=== PATIENT | female | born 1990 | race American Indian/Alaskan Native ===

== ENCOUNTER 2017-09-06 15:58 | Inpatient (IN) | payer BC, OTHER ==
[2017-09-06 18:18] VITALS: BMI 28.5
[2017-09-06] MEDS ORDERED: Penicillin G 5 Million Unit Vial IVPB ONE ×2 (18:18→20:16)
[2017-09-06] MEDS ORDERED: Lactated Ringer's 1,000 ML IV ONE (18:18)
[2017-09-06] MEDS ORDERED: Oxytocin 30 UNIT 30 UNITS/500 ML BAG IV ONE ×2 (18:18→20:03)
[2017-09-06] MEDS ORDERED: Lactated Ringer's 1,000 ML IV SCH (18:30)
[2017-09-06 19:01] LABS: BASO # 0.1 K/uL (0.0-0.2); BASO % 0.9 % (0.0-2.0); EOS # 0.1 K/uL (0.0-0.7); EOS % 0.8 % (0.0-4.0); HEMOGLOBIN 12.3 g/dL (11.0-16.0); LYMPH # 1.8 K/uL (1.0-4.3); LYMPH % 26.2 % (20.0-40.0); MEAN CELL VOLUME 95.1 fL (81.0-99.0); MEAN CORPUSCULAR HEMOGLOBIN 31.6 pg (27.0-31.0); MEAN CORPUSCULAR HGB CONC 33.2 g/dL (33.0-37.0); MEAN PLATELET VOLUME 10.5 fL (7.2-11.7); MONO # 0.5 K/uL (0.0-0.8); MONO % 7.5 % (0.0-10.0); NEUT # 4.4 K/uL (1.8-7.0); NEUT % 64.6 % (50.0-75.0); NRBC % 0.1 % (0.0-2.0); RBC 3.89 Mil/uL (3.80-5.20); RED CELL DISTRIBUTION WIDTH 13.4 % (11.5-14.5); WHITE BLOOD COUNT 6.8 K/uL (4.8-10.8)
[2017-09-06 19:03] LABS: SQUAMOUS EPITHIAL 2 /hpf (0-5); URINE BILIRUBIN NEGATIVE (NEGATIVE); URINE BLOOD NEGATIVE (NEGATIVE); URINE CLARITY Hazy (Clear); URINE COLOR Yellow (YELLOW); URINE GLUCOSE (UA) NORMAL (Normal); URINE LEUKOCYTE ESTERASE TRACE Leu/uL (Negative); URINE PROTEIN NEGATIVE (NEGATIVE); URINE UROBILINOGEN NORMAL mg/dL (0.2-1.0)
[2017-09-06] MEDS ORDERED: Bupivacaine HCl/FentaNYL Cit 100 ML EPI ONE (21:22)
--- NOTE | 2017-09-06 21:56 | OBHP ---
Datetime: 09/06/2017 16:49 IP Adm Impression: Term, intrauterine ; No Active Labor; Intact Membranes IP Admit Plan: Admit to unit IP Admit Plan Other: Cdervical ripening and augmentation Admit Comment, IP Provider: Evaluation commenced at 1615 hours This is a private patient of Dr. Fina Bautista 27 y.o. P1, LMP 12/09/16, revised HARDIK 09/11/17, EGA 39w 2d by sono at 6 weeks, referred by PMD for e valuation due to decreased movement. Reports last "normal" movement approx 2000 hours 09/05/17. Not much movement all night. Approx 0900 hours, ate breakfast: (+) FM then, none since. Did many of t he recommended maneuvers to stimulate fetus. Called PMD in the afternoon, told to come in. [place] some movement in car on her way to hospital approx 1530 hours; none since. Denies LOF. (+) vaginal spotting x 2 days (Friday after Office visit) and . No active red blood per vagina. (+) B- H Ctx. Last had sexual intercourse lasat night. care: Dr. Fina Bautista; noted for anemia an d GBS (+). Was told to have fibroids on 2 ultrasounds earlier in ; not seen on most recent u ltrasound. 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 Denies h/o STI, fibroids, abnormal Pap PMH: heart murmur: first diagnosed age 9;not detected approx 2 years later. PSH: 2011, bilateral bunionectomy NKDA Meds: PNV. Stopped iron as "the level improved" Soc Hx: deneis tobacco, illicit drug or EtOH use. x 2 years. 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 Father alive 65 y.o.; both with HTN. No known fam h/o cancer P.E.: as above. WD in NAD. Awake, alert, oriented to time, person and place. Pleasant and cooperat adolfo. and mother in law present. Assessment: 27 y.o. P0, 39w 2d, decreased movement. Category 1 tracing. Will admit for edi rodrigues. Dr. Bautista spoke with patient, explaining the following: placementof cervical ripening balloon a nd initiation of pitocin. Pain relief options also discussed. Patient has agreed to proceed. Patient is clinically stable. GBS (+) Plan: 1) Admit 2) NPO 3) Patient may shower 4) IVFs 5) Continuous EFM 6) Admission labs 7) Placement of cervical ripening balloon 8) Penicillin 9) pitocin 10) Epidural, upon request 11) Anticipate vaginal delivery - as per, and discussed with, Dr. Bautista Addendum: 2000 hours - cervical ripening balloon inserted without incident Assessment: 27 y. P0, 39w 2d, decreased movement for delivery; cervical ripening in progress . Category 1 tracing. Clinically stable. Plan: 1) start pitocin 2) as above Pelvic Type - PN: Adequate Extremities - PN: Normal Abdomen - PN: Normal Back - PN: Normal Breast - PN: Normal Lungs - PN: Normal Heart - PN: Normal Thyroid - PN: Not Done Neurologic - PN: Normal HEENT - PN: Normal General - PN: Normal Weight - Estimated: 3860 Presentation-Admit: Vertex FHR - Baseline A Provider: 145 Contraction Comments Provider: irregular Comments, ACOG Physical Exam: Abdomen: Gravid. Soft. Non tender. Fundal height = 38 cm All other systems reviewed and are negative Gestation - Est Wks by US: 39w 2d EGA AdmitDate IP: 39.2 Vital Signs Provider: Reviewed IP Indication for Induction: Other IP Indication for Induction Oth: Decreased movement IP Chief Complaint: Decreased movement NICHD Variability Prov Fetus A: Moderate 6-25bpm NICHD Accel Fetus A IP Provider: 10X10 FHR Category Provider Fetus A: Category I NICHD Decel Fetus A IP Provider: None Dilatation, Provider: 2 Effacement, Provider: 30 Station, Provider: -3 Genitourinary Exam: Normal DTRs - PN: Not Done
--- NOTE | 2017-09-07 01:26 | OBPN ---
Datetime: 09/07/2017 01:15 IP Progress Impression: Normal progression of labor IP Procedures: Artificial ROM; Sterile Vag Exam IP Progress Plan: Continue present management; Anticipate Vaginal Delivery Membranes, Provider: Ruptured Amniotic Fluid Color, Provider: Clear Contraction Comments Provider: 2-3 FHR - Baseline A Provider: 150 Gestation - Est Wks by US: 39w 3d Presentation-Admit: Vertex IP Progress Note Comment: Notified by R.N. at 0100 hours, FHR noted for late decelerations FHR tracing reviewed: 9=0 late decelertions x 20 minutes Patietn receivedin bed, LDR#2 in left lateral position. Pitocin off; IV bolus in progress, oxygen by face mask. Patient without any complaint of pain - S/P epidural Cervical exam: cervical ripening balloos removed. dilatation as above. At 0110 hours cervix: 6-7/7 0/-3. Decisoin made to perform AROM. Same performed - copious amount of clear fluid; station - 2. Assessment: 27 y.o. P0, 39w 3d, as above. In between first encounter and AROM, FHR improved with n o decelerations. After AROM, early decelerations noted. patient is clinically stable. Plan: 1) Observe 2) Possible resume pitocin 3) Anticipate vaginal delivery - as per and discussed with Dr. Bautista Vital Signs Provider: Reviewed; Within Normal Limits NICHD Accel Fetus A IP Provider: 15X15 NICHD Variability Prov Fetus A: Moderate 6-25bpm Dilatation, Provider: 7 Effacement, Provider: 70 Station, Provider: -3 NICHD Decel Fetus A IP Provider: Early Datetime: 09/06/2017 16:49 Weight - Estimated: 3860 FHR Category Provider Fetus A: Category I
--- NOTE | 2017-09-07 02:53 | OBPN ---
Datetime: 09/07/2017 01:56 IP Progress Impression: Normal progression of labor IP Informed Consent Obtain: Vaginal Delivery IP Progress Plan: Continue present management Membranes, Provider: Ruptured Amniotic Fluid Color, Provider: Clear FHR - Baseline A Provider: 145 Gestation - Est Wks by US: 39.3 Presentation-Admit: Vertex IP Progress Note Comment: pt seen and examined s/p epidural pt adivsed for decreased movments and cat II with variables, piticon adn velásquez balloon initi ate velásquez balloon removed, pitcon dxc due to decelration oxygen, eflt latera, ivh arom, clear VSS EFM: 145/mod mike early TOCO: q 1-2m in A/P @ 39.3 in labor, gbs postiive cont current mangment Vital Signs Provider: Reviewed; Within Normal Limits NICHD Variability Prov Fetus A: Moderate 6-25bpm Dilatation, Provider: 5 Effacement, Provider: 60 Station, Provider: -2 NICHD Decel Fetus A IP Provider: Variable
[2017-09-07] MEDS ORDERED: Bupivacaine HCl/FentaNYL Cit 100 ML EPI ONE (04:24)
--- NOTE | 2017-09-07 07:28 | OBPN ---
Datetime: 09/07/2017 07:23 IP Procedures: Artificial ROM IP Progress Plan: Continue present management Membranes, Provider: Ruptured Amniotic Fluid Color, Provider: Clear Contraction Comments Provider: q 1-2 min FHR - Baseline A Provider: 150 Gestation - Est Wks by US: 39.3 Presentation-Admit: Vertex IP Progress Note Comment: pt seen and examiend for progiresosn of laobr. pt preorts nausea, no vomit ing, cp, sob VSS VE: /-2 vtx arom, clear EMF: Cat I TOCO: q 2 min A/P @ 39.3 wks GA in labor -pitocin as per protoicn -cont current managment Vital Signs Provider: Reviewed; Within Normal Limits FHR Category Provider Fetus A: Category I NICHD Variability Prov Fetus A: Moderate 6-25bpm Dilatation, Provider: 6 Effacement, Provider: 70 Station, Provider: -2 NICHD Decel Fetus A IP Provider: Early
[2017-09-07] MEDS ORDERED: Oxytocin 30 UNIT 30 UNITS/500 ML BAG IV SCH (07:30)
[2017-09-07] MEDS ORDERED: Sodium Citrate/Citric Acid 15 ml Sol PO ONE (08:30)
[2017-09-07] MEDS ORDERED: cefOXitin IV 2 gm in Dextrose 2 GM/50 ML BAG IVPB SCH (09:00)
[2017-09-07] MEDS ORDERED: cefOXitin IV 2 gm in Saline 2 GM in Sodium Chloride 0.9% 50 ML IV SCH (09:00)
[2017-09-07] MEDS ORDERED: Sodium Citrate/Citric Acid 15 ml Sol ONE (09:17)
[2017-09-07] MEDS ORDERED: cefOXitin IV 2 gm in Saline 2 GM/50 ML BAG IVPB ONE (09:31)
--- NOTE | 2017-09-07 09:32 | OBPN ---
Datetime: 09/07/2017 09:25 IP Progress Impression: Arrest of dilatation/descent IP Informed Consent Obtain: Section Delivery IP Progress Plan: Continue present management; Deliver- Section Membranes, Provider: Ruptured FHR - Baseline A Provider: 150 Gestation - Est Wks by US: 39.3 Presentation-Admit: Vertex IP Progress Note Comment: pt seen and examiend for progressin of labor. s/p epidural pitocion d c VSS EMF: Cat II TOCO: q 2 min A/P @ 39.3 wks GA with arrest of dilation r/b/ai pltc dw patietn preop [id number] npo, ivf admissin lbas cont toco and efm bicitrat pepcid or/anethsia aware Vital Signs Provider: Reviewed; Within Normal Limits FHR Category Provider Fetus A: Category II NICHD Variability Prov Fetus A: Moderate 6-25bpm Dilatation, Provider: 6 Effacement, Provider: 70 Station, Provider: -2 NICHD Decel Fetus A IP Provider: Late
[2017-09-07] MEDS ORDERED: Oxytocin 20 units in LR 2,000 ML IV ONE (09:48)
[2017-09-07] MEDS ORDERED: Morphine 1 mg/ml preservative-free Inj(Duramorph) ONE (09:53)
[2017-09-07] MEDS ORDERED: EPINEPHrine 1 mg/ml (1:1000) Inj ONE (09:57)
[2017-09-07] MEDS ORDERED: Phenylephrine 10 mg/ml Inj ONE (10:36)
[2017-09-07] MEDS ORDERED: Oxytocin 30 UNIT 30 UNITS/500 ML BAG IV ONE (10:55)
--- NOTE | 2017-09-07 10:57 | OBDS ---
DELIVERY PERSONNEL Delivery Doctor: Senait Bautista MD Scrub Nurse: Aracely Burnham OBT Accreditation Manager: Tiarra Ervin RN Anesthesiologist: erika Financial Compliance Examiner: Mesfin MATERNAL INFORMATION Delivery Anesthesia: Spinal Medications in Delivery: pitocin 20 mg Maternal Complications: None RN Comments: placenta sent to lab. Provider Comments: live male ifnant cepahic presntentatin agpars 9,9 weigh tof 7lb 10 ounces nroam appearing uteurs, tube and ovaries b/l peidatirin presnt for deliveyr LABOR SUMMARY EDC: 09/11/2017 00:00 Attempted: No Labor Anesthesia: Epidural LABOR INFORMATION Onset of Labor: 09/06/2017 22:00 Cervical Ripening Agents: Bryan Balloon (Annotations: Cervical ripening balloon removed by Dr. Reva greenfield) Other Ripening Agents: balloon Oxytocin: Induction Steroids Given: None Reason Steroids Not Administered: Not Applicable MEMBRANES Membranes Rupture Method: Artificial Rupture of Membranes: 09/07/2017 01:12 Length of Rupture (hrs): 9.07 Amniotic Fluid Color: Clear Amniotic Fluid Amount: Large Amniotic Fluid Odor: Normal STAGES OF LABOR Stage 3 hrs: 0 Stage 3 min: 1 Total Time in Labor hrs: 12 Total Time in Labor min: 17 CSECTION DELIVERY Primary Indication: Failed Induction Secondary Indication: Secondary Arrest of Dilatation CSection Urgency: Elective CSection Incidence: Primary Labor: Labor Elective: Elective BABY A INFORMATION Delivery Date/Time: 09/07/2017 10:16 Method of Delivery: Vaginal Born in Route : No : N/A Forceps: N/A SHOULDER DYSTOCIA BABY A Infant Delivery Date/Time: 09/07/2017 10:16 PRESENTATION/POSITION BABY A Presentation: Cephalic Cephalic Presentation: Vertex Vertex Position: Left Occipital Anterior Breech Presentation: N/A PLACENTA INFORMATION BABY A Placenta Delivery Time : 09/07/2017 10:17 Placenta Method of Delivery: Manual Removal Placenta Status: Delivered SCORES BABY A Heart Rate 1 min: >100 bpm Resp Effort 1 min: Good Cry Reflex Irritability 1 min: Cough or Sneeze or Pulls Away Muscle Tone 1 min: Active Motion Color 1 min: Body [place], Extremities Blue SCORE 1 MIN: 9 Heart Rate 5 min: >100 bpm Resp Effort 5 min: Good Cry Reflex Irritability 5 min: Cough or Sneeze or Pulls Away Muscle Tone 5 min: Active Motion Color 5 min: Body [place], Extremities Blue SCORE 5 MIN: 9 INFORMATION BABY A Gestational Age at Delivery: 39.3 Gestational Status: Term Infant Outcome : Liveborn Infant Condition : Stable Sex: Male IDENTIFICATION/MEDS BABY A ID Band Number: [id number] ID Band Location: Left Leg; Left Arm Sensor Applied: Yes Sensor Number: [id number] Sensor Location : Left Leg; Left Arm Vitamin K Given : Aquamephyton 1 mg IM Erythromycin Given: Given Both Eyes WEIGHT/LENGTH BABY A Birthweight (gms): 3460 Weight (lb): 7 Infant Weight (oz): 10 Infant Length Inches: 18.75 Infant Length cms: 47.6 CORD INFORMATION BABY A No. Cord Vessels: 3 Nuchal Cord : N/A Nuchal Cord Other: 0 ASSESSMENT BABY A Infant Complications: None
--- NOTE | 2017-09-07 10:58 | PCM.SURG1 ---
Surgeon's Initial Post Op Note - Surgeon's Notes Surgeon: Fina Bautista MD Carpenter Mate: Joni Nj MD Type of Anesthesia: Other Pre-Operative Diagnosis: Arrest of dilation Operative Findings: live male cephalic presentation apgrs 9,9 weigh of 7lbs 10 ounces alfredo lappearing uterus, tubes adn ovariesn bilaterally. peditaricn prseetn for delivery. Dr Joni Nj was surgical assistn and prestn for entire case and essential in gainign entry, retractin, epxosure, hlidng the bladder blade helpign to delivery ifnant and close all layers Post-Operative Diagnosis: same as above Operation Performed: Primary low transverse cesearen section Specimen/Specimens Removed: placenta Estimated Blood Loss: EBL {In ML}: 800 Blood Products Given: N/A Drains Used: No Drains Post-Op Condition: Good Date of Surgery/Procedure: 09/07/17 Time of Surgery/Procedure: 10:10
[2017-09-07] MEDS ORDERED: Oxycodone/Acetaminophen 5/325 mg Tab PO PRN (11:49)
[2017-09-07] MEDS: AMPicillin 2 GM in Sodium Chloride 0.9% 100 ML IVPB SCH ×2 (16:12→22:53)
[2017-09-07] MEDS: Simethicone 80 mg Chewtab PO SCH ×3 (16:44→22:52)
[2017-09-07] MEDS: Oxycodone/Acetaminophen 5/325 mg Tab PO PRN (23:53)
[2017-09-08] MEDS: AMPicillin 2 GM in Sodium Chloride 0.9% 100 ML IVPB SCH ×3 (04:30→16:42)
[2017-09-08 07:47] LABS: MEAN CELL VOLUME 95.7 fL (81.0-99.0); MEAN CORPUSCULAR HGB CONC 33.4 g/dL (33.0-37.0); MEAN PLATELET VOLUME 9.8 fL (7.2-11.7); RBC 2.86 Mil/uL (3.80-5.20)
[2017-09-08 07:50] LABS: HEMOGLOBIN 9.2 g/dL (11.0-16.0)
[2017-09-08] MEDS: Oxycodone/Acetaminophen 5/325 mg Tab PO PRN (08:33)
[2017-09-08] MEDS: Simethicone 80 mg Chewtab PO SCH ×4 (09:47→22:21)
[2017-09-08] MEDS ORDERED: Multiple Vitamins Tab PO SCH (10:00)
--- NOTE | 2017-09-08 10:36 | OBPPN ---
Datetime: 09/08/2017 10:21 PP Pain Prov: Within normal limits PP Nausea Prov: Denies PP Flatus Prov: Yes PP Breasts Prov: Normal PP Heart Prov: Normal PP Lungs Prov: Normal PP Abdomen/Uterus Prov: Normal PP Lochia Prov: Normal PP Vulva/Perineum Prov: Normal PP CVA Tenderness Prov: Normal PP Extremities Prov: Normal PP C/S Incision Prov: Normal PP Progress Prov: Normal PP Impression Prov: Normal progression; Endometritis PP Plan Prov: Continue present management; Antibiotic therapy PP Progress Note Prov: pt seen and examiend reprots pain andc rampign alleviated with precorcet. pt ambuating voiding passing minimal flatus, tolerted regular diet, denies any fever, chills, nasue, vo mitnv, cp, sob. pt isbreat feedign denies any feeling of sadnes or depression. pt denies any lighthea dnes,d izzyness. VSS PE GEN NAD AA ox 3 RESP: CTAB?l CVR: RRR, +S1/S2 ABD: soft, NT, nimally disteneded, no guarding, no reboudn tendnerr, no rigidty, Fundus firm at le alma of umbilicis INCSION C??DI healing well VE: minimal lochia, non foul smelling EXT: No calf tendnerss b/l, engaitve alvin's sign A/P s/p PLTCS POD #1 with endoemtritis triple anbitioc therapy x 24 hour am labs pain manamgnet bowel regimen encourage ambation and breast feeding Vital Signs Provider PP: Reviewed Vital Signs Provider Details PP: temp 101 09/07 Datetime: 09/07/2017 07:28 PP BM Prov: No
[2017-09-08] MEDS: Prenatal Multivit/Folic Acid/Iron Tab PO SCH (10:54)
[2017-09-08] MEDS ORDERED: Bisacodyl 5mg EC Tab PO ONE (10:56)
[2017-09-08 11:22] LABS: BASO % 0.3 % (0.0-2.0); EOS % 0.2 % (0.0-4.0); HEMOGLOBIN 9.1 g/dL (11.0-16.0); LYMPH # 1.3 K/uL (1.0-4.3); LYMPH % 12.3 % (20.0-40.0); MEAN CELL VOLUME 94.8 fL (81.0-99.0); MEAN CORPUSCULAR HEMOGLOBIN 32.3 pg (27.0-31.0); MEAN PLATELET VOLUME 9.6 fL (7.2-11.7); MONO # 0.9 K/uL (0.0-0.8); MONO % 8.6 % (0.0-10.0); NEUT # 8.1 K/uL (1.8-7.0); NEUT % 78.6 % (50.0-75.0); RBC 2.82 Mil/uL (3.80-5.20); RED CELL DISTRIBUTION WIDTH 13.2 % (11.5-14.5); WHITE BLOOD COUNT 10.3 K/uL (4.8-10.8)
--- NOTE | 2017-09-09 00:09 | OBPPN ---
Datetime: 09/09/2017 00:03 PP Pain Prov: Within normal limits PP Nausea Prov: Denies PP Flatus Prov: No PP BM Prov: No PP Breasts Prov: Normal PP Heart Prov: Normal PP Lungs Prov: Normal PP Abdomen/Uterus Prov: Normal PP Lochia Prov: Normal PP Vulva/Perineum Prov: Normal PP CVA Tenderness Prov: Normal PP Extremities Prov: Normal PP C/S Incision Prov: Normal PP Progress Prov: Normal PP Impression Prov: Normal progression; Endometritis PP Plan Prov: Continue present management PP Progress Note Prov: pt seen and examiend reprots pain andc rampign alleviated with precorcet. pt ambuating voiding not passing flatus, tolerted regular diet, denies any fever, chills, nasue, vomitn v, cp, sob. pt isbreat feedign denies any feeling of sadnes or depression. pt denies any lightheadnes ,d izzyness. VSS PE GEN NAD AA ox 3 RESP: CTAB?l CVR: RRR, +S1/S2 ABD: soft, NT, nimally disteneded, no guarding, no reboudn tendnerr, no rigidty, Fundus firm at le alma of umbilicis INCSION CDI healing well VE: minimal lochia, non foul smelling EXT: No calf tendnerss b/l, engaitve alvin's sign A/P s/p PLTCS POD #2 with endoemtritis s/p triple anbitiocs am labs cbc, cmp, mg pain manamgnet bowel regimen encourage ambation and breast feeding possibel abdomina xray Vital Signs Provider PP: Reviewed; Within Normal Limits
--- NOTE | 2017-09-09 01:28 | OP ---
PROCEDURE DATE: 09/07/2017 SURGEON: Fina Bautista MD LITIGATION SERVICES MANAGER: Joni Head MD TYPE OF ANESTHESIA: Epidural. PREOPERATIVE DIAGNOSIS: Arrest of dilation. POSTOPERATIVE DIAGNOSIS: Arrest of dilation. OPERATIVE FINDINGS: Live male infant, cephalic presentation, Apgars 9 and 9, weight of 7 pounds 9 ounces. Normal-appearing uterus, tubes and ovaries bilaterally. Manager Research was present for the delivery. Dr. Joni Head was operating room surgical technician who was present for the entire case and essential in gaining entry, retraction, exposure, holding the bladder blade, helping to deliver the infant and closing all layers. OPERATION PERFORMED: Primary low transverse section. SPECIMEN REMOVED: Placenta. ESTIMATED BLOOD LOSS: 800 mL. BLOOD PRODUCTS: None. COMPLICATIONS: None. DESCRIPTION OF PROCEDURE: The patient is a 27-year-old, G1, P0, with arrest of dilation. Risks, benefits, alternatives, and indications of section were discussed with the patient. Consent was obtained. The patient was transferred to the operating room where she was given preoperative prophylactic antibiotics. The patient was given epidural anesthesia. Once it was found to be adequate, she was placed on the operating table in dorsal supine position. The patient was then prepped and draped in the usual sterile fashion. A time-out confirmed correct patient and correct procedure. time-out, a Pfannenstiel skin incision was made with a scalpel, carried down to the underlying fascia with a Bovie. The fascia was incised in the midline. The incision was extended laterally with the Bovie. The inferior aspect of the fascial incision was grasped with Allis and Gia clamps, and the underlying rectus muscles were dissected off bluntly. Attention was then turned to the superior aspect of the incision which in a similar fashion was grasped, elevated with Gia clamps, and the underlying rectus muscles were dissected off bluntly. The rectus muscles were then bluntly in the midline. The peritoneum was identified, entered into clear space. The incision was extended laterally and superiorly until there was good visualization of the bladder. The lower end of the [place] was then inserted. The vesicouterine peritoneum was incised in a transverse fashion. A bladder flap was created digitally. The lower end of the [place] was then re-inserted. The lower uterine segment was incised in a transverse fashion. The uterine incision was extended laterally bluntly. Surgeon's hand entered the uterine cavity. The infant's head was delivered atraumatically followed by delivery of the shoulders, followed by delivery of the body. Both oral and nasal passages of the baby were bulb suctioned. The umbilical cord was clamped and cut. Baby was handed off to the awaiting calendar control clerk blood bank. Cord blood and cord gases were collected and sent x2. The placenta was then delivered manually. The uterus was exteriorized of all clots and debris. The uterine incision was repaired with 0 Vicryl in a running continuous locked fashion. A second layer of same suture was used to close the uterus in a running imbricating manner. There was good hemostasis at the uterine incision site. There were normal tubes and ovaries. The uterus was then returned into the abdomen. Paracolic gutters were cleared of all clots and debris. The peritoneum was reapproximated and closed with 2-0 chromic in a running continuous fashion. The rectus was reapproximated and closed with 2-0 chromic in an interrupted manner. The fascia was reapproximated and closed with 0 Vicryl in a running continuous fashion. The subcutaneous layers were closed with 2-0 plain in an interrupted manner. The skin was reapproximated and closed with 4-0 Monocryl. At the end of the procedure, all needles, sponge, and instrument counts were noted as correct x2. The patient tolerated the procedure well and was transferred to the recovery room in stable condition. Fina Bautista MD
[2017-09-09 07:53] LABS: ALBUMIN 2.8 g/dL (3.5-5.0); ALT/SGPT 23 U/L (9-52); AST/SGOT 33 U/L (14-36); BASO % 0.6 % (0.0-2.0); BLOOD UREA NITROGEN 6 mg/dL (7-17); CALCIUM 8.5 mg/dl (8.6-10.4); EOS # 0.1 K/uL (0.0-0.7); EOS % 0.8 % (0.0-4.0); GFR AFRICAN-AMERICAN > 60; GFR NON-AFRICAN AMERICAN > 60; HEMOGLOBIN 8.7 g/dL (11.0-16.0); LYMPH # 2.4 K/uL (1.0-4.3); LYMPH % 28.9 % (20.0-40.0); MEAN CELL VOLUME 95.7 fL (81.0-99.0); MEAN CORPUSCULAR HEMOGLOBIN 31.9 pg (27.0-31.0); MEAN CORPUSCULAR HGB CONC 33.4 g/dL (33.0-37.0); MEAN PLATELET VOLUME 9.4 fL (7.2-11.7); MONO # 0.8 K/uL (0.0-0.8); MONO % 9.5 % (0.0-10.0); NEUT # 4.9 K/uL (1.8-7.0); NEUT % 60.2 % (50.0-75.0); NRBC % 0.1 % (0.0-2.0); RBC 2.72 Mil/uL (3.80-5.20); RED CELL DISTRIBUTION WIDTH 13.1 % (11.5-14.5); WHITE BLOOD COUNT 8.2 K/uL (4.8-10.8)
[2017-09-09] MEDS: Prenatal Multivit/Folic Acid/Iron Tab PO SCH (09:51)
[2017-09-09] MEDS: Simethicone 80 mg Chewtab PO SCH ×4 (09:51→22:05)
[2017-09-09] MEDS ORDERED: Bisacodyl 5mg EC Tab PO ONE (10:12)
[2017-09-09] MEDS: Magnesium Hydroxide Susp 30 ml UD PO SCH ×3 (10:37→22:06)
[2017-09-10 00:06] VITALS: RESP 20
[2017-09-10] MEDS: Magnesium Hydroxide Susp 30 ml UD PO SCH ×3 (04:22→09:22)
[2017-09-10 08:23] LABS: BASO # 0.1 K/uL (0.0-0.2); BASO % 0.7 % (0.0-2.0); EOS # 0.1 K/uL (0.0-0.7); EOS % 2.1 % (0.0-4.0); HEMOGLOBIN 8.9 g/dL (11.0-16.0); LYMPH # 2.4 K/uL (1.0-4.3); LYMPH % 33.5 % (20.0-40.0); MEAN CELL VOLUME 95.6 fL (81.0-99.0); MEAN CORPUSCULAR HEMOGLOBIN 32.1 pg (27.0-31.0); MEAN CORPUSCULAR HGB CONC 33.5 g/dL (33.0-37.0); MEAN PLATELET VOLUME 9.5 fL (7.2-11.7); MONO # 0.5 K/uL (0.0-0.8); MONO % 7.7 % (0.0-10.0); RBC 2.77 Mil/uL (3.80-5.20); RED CELL DISTRIBUTION WIDTH 13.2 % (11.5-14.5)
[2017-09-10 08:25] VITALS: BP 111/73; PULSE 80; O2SAT 100
[2017-09-10 08:46] LABS: ALB/GLOB RATIO 1.1 (1.0-2.1); ALT/SGPT 25 U/L (9-52); AST/SGOT 32 U/L (14-36); BLOOD UREA NITROGEN 7 mg/dL (7-17); CALCIUM 8.7 mg/dl (8.6-10.4); GFR AFRICAN-AMERICAN > 60; GFR NON-AFRICAN AMERICAN > 60
[2017-09-10] MEDS: Simethicone 80 mg Chewtab PO SCH (09:21)
[2017-09-10] MEDS: Prenatal Multivit/Folic Acid/Iron Tab PO SCH (09:21)
[2017-09-10 16:34] VITALS: TEMP 99
--- NOTE | 2017-09-11 11:13 | OBDCSUM ---
Datetime: 09/10/2017 09:26 Disch Instr Diet: Regular Discharge Instructions, Provider: Routine instructions given Discharge Diagnosis, Provider: Term Delivered Contraception discussed, Prov: Yes Contraception after Delivery: Not Planning to Use
--- NOTE | 2017-09-11 11:13 | OBPPN ---
Datetime: 09/11/2017 11:11 PP Pain Prov: Within normal limits PP Nausea Prov: Denies PP Flatus Prov: Yes PP Breasts Prov: Normal PP Heart Prov: Normal PP Lungs Prov: Normal PP Abdomen/Uterus Prov: Normal PP Lochia Prov: Normal PP Vulva/Perineum Prov: Normal PP CVA Tenderness Prov: Normal PP Extremities Prov: Normal PP Progress Note Prov: delayed entry [t seen adn examien doign well VSS PE SEE boev a/p s/p PLTCS POD #3 dc hoem rto 1 week
== END 2017-09-10 12:30 | disposition home or self-care (01) | DRG 765 ==
LOC: C.EROB 15:58 → C.4D 17:40 → C.4M 09-07 14:33
PROVIDERS: ADMIT Obstetrics & Gynecology; ATTEND Obstetrics & Gynecology
PROC: 0U7C7ZZ Dilation of Cervix, Via Natural or Artificial Opening (ICD-10-PCS; 2017-09-06)
PROC: 3E0P7VZ Introduction of Hormone into Female Reproductive, Via Natural or Artificial Opening (ICD-10-PCS; 2017-09-06)
PROC: 10D00Z1 Extraction of Products of Conception, Low, Open Approach (ICD-10-PCS; principal; 2017-09-07)
DX: O36.8130 Decreased fetal movements, third trimester, not applicable or unspecified (principal); O86.12 Endometritis following delivery; O62.0 Primary inadequate contractions; O61.9 Failed induction of labor, unspecified; O76 Abnormality in fetal heart rate and rhythm complicating labor and delivery; O99.02 Anemia complicating childbirth; D64.9 Anemia, unspecified; N71.9 Inflammatory disease of uterus, unspecified; O99.824 Streptococcus B carrier state complicating childbirth; Z3A.39 39 weeks gestation of pregnancy; Z37.0 Single live birth